=== PATIENT | female | born 1995 | race Two or more races ===

== ENCOUNTER 2021-04-01 02:31 | Emergency (ER) | payer OTHER ==
[~2021-04-01] VITALS: Ht 170.2 cm; Wt 91.4 kg
[2021-04-01 02:33] VITALS: BP 143/79
[2021-04-01] MEDS ORDERED: NS 1,000 ML IV ONE (07:25)
[2021-04-01 07:30] LABS: BASO % 0.6 % (0.0-1.0); EOS # 0.1 10^3/uL (0.0-0.5); EOS % 0.9 % (0.0-3.0); HEMATOCRIT 53.4 % (36.0-47.0); LYMPH # 2.9 10^3/uL (1.5-5.0); LYMPH % 43.3 % (24.0-44.0); MEAN CORPUSCULAR HEMOGLOBIN 28.6 pg (27.0-33.0); MEAN CORPUSCULAR HGB CONC 33.7 g/dl (32.0-36.5); MEAN CORPUSCULAR VOLUME 84.9 fl (80.0-96.0); MONO # 0.4 10^3/uL (0.0-0.8); MONO % 6.3 % (2.0-8.0); NEUTROPHILS # 3.3 10^3/uL (1.5-8.5); NEUTROPHILS % 48.8 % (36.0-66.0); PLATELET COUNT, AUTOMATED 346 10^3/uL (150-450); RED BLOOD COUNT 6.29 10^6/uL (4.00-5.40); WHITE BLOOD COUNT 6.8 10^3/uL (4.0-10.0)
[2021-04-01] MEDS ORDERED: CEPH500C PO ×2 (10:21→10:22)
== END 2021-04-01 10:07 | disposition home or self-care (01) ==
LOC: M ED 02:31
DX: O46.91 Antepartum hemorrhage, unspecified, first trimester (principal); O23.41 Unspecified infection of urinary tract in pregnancy, first trimester; Z3A.00 Weeks of gestation of pregnancy not specified

== ENCOUNTER → 2021-08-01 | Outpatient (REF) ==
[~2021-08-01] MED LIST: CEPH500C PO
[2021-08-02 05:07] LABS: RUBEOLA IgG ANTIBODY 33.5 AU/mL (Immune >16.4)
== END ==
LOC: M LAB 11:42
PROVIDERS: ATTEND Nurse Practitioner Adult Health
DX: Z11.52 Encounter for screening for COVID-19 (principal)

== ENCOUNTER → 2021-08-03 | Outpatient (REF) | LOC: M RAD 13:34 | PROVIDERS: ATTEND Nurse Practitioner Adult Health | DX: Z11.52 Encounter for screening for COVID-19 (principal) ==

== ENCOUNTER → 2022-02-24 | Outpatient (REF) | LOC: M EMP 08:57 | PROVIDERS: ATTEND Family Medicine | DX: Z11.52 Encounter for screening for COVID-19 (principal) ==

== ENCOUNTER → 2022-03-02 | Outpatient (REF) | LOC: M EMP 10:31 | PROVIDERS: ATTEND Family Medicine | DX: Z11.52 Encounter for screening for COVID-19 (principal) ==